=== PATIENT | female | born 1995 | race African-American/Black ===

== ENCOUNTER 2017-04-23 08:03 | Inpatient (IN) ==
[2017-04-23] MEDS ORDERED: HYDROmorphone 2 MG/1 ML VIAL IV STA ×3 (08:26→12:20)
[2017-04-23] MEDS ORDERED: SODIUM CHLORIDE 0.9% 1,000 ML IV STA (08:26)
[2017-04-23] MEDS ORDERED: ONDANSETRON 4 MG/2 ML VIAL IV STA (08:26)
[2017-04-23] MEDS ORDERED: ONDANSETRON 4 MG/2 ML VIAL ONE (08:54)
[2017-04-23] MEDS ORDERED: HYDROmorphone 2 MG/1 ML VIAL ONE ×3 (08:55→12:21)
[2017-04-23 08:58] LABS: Basophils % 0.5 % (0.0-0.8); Eosinophils # 0.1 10*3/uL (0.0-0.87); Eosinophils % 0.7 % (0.00-10.9); Hematocrit 27.1 VOL% (35.7-47.0); Hemoglobin 9.8 GM/DL (12.0-16.0); Immature Granulocytes % 5.5 %; Immature Granulocytes Absolute 0.48 #; Lymphocytes # 4.3 10*3/uL (1.4-4.0); Lymphocytes % 48.5 % (21.3-54.2); Mean Corpuscular HGB Conc 36.2 GM/DL (32-36); Mean Corpuscular Hemoglobin 35 PG (27-34); Mean Corpuscular Volume 97.1 FL (87-102); Mean Platelet Volume 9.6 FL (9.6-12.0); Monocytes # 0.6 10*3/uL (0.11-0.8); Monocytes % 6.7 % (1.7-12.7); NRBC # 0.05 10*3/uL; Neutrophils # 3.4 10*3/uL (1.4-7.4); Neutrophils % 38.1 % (38.7-73.9); Platelet Count 326 T/CUMM (130-400); Red Blood Count 2.79 MC/CUMM (3.8-5.5); Red Cell Distribution Width 18.3 % (9.3-17.3); White Blood Count 8.8 T/CUMM (4-12)
[2017-04-23 09:20] LABS: Band Neutrophils 2 % (0-10); Lymphocytes 53 % (20-55); Segmented Neutrophils 39 % (50-85); Total Cells Counted 100
[2017-04-23 09:21] LABS: Elliptocytes Few; Giant Platelets Few; Hypochromasia 1+; Macrocytosis Slight; Platelet Estimate Adequate; Polychromasia Slight
[2017-04-23 09:22] LABS: Sickle Cells Slight
[2017-04-23 09:34] LABS: Albumin 3.8 G/DL (3.4-5.0); Bilirubin,Total 2.6 MG/DL (0.2-1.0); Calcium 9.1 MG/DL (8.5-10.1); Osmolality,Calculated 274.5 MOS/KG (273-304); Potassium 3.7 MMOL/L (3.5-5.1); Total Protein 7.8 G/DL (6.4-8.3)
[2017-04-23 10:00] LABS: Barbiturates Screen,Urine Negative (Negative); Benzodiazepines Screen,Urine Negative (Negative); Cannabinoid Screen,Urine Positive (Negative); Opiate Screen,Urine Negative (Negative); Phencyclidine Screen,Urine Negative (Negative)
[2017-04-23] MEDS ORDERED: HYDROmorphone 2 MG/1 ML VIAL IV PRN (12:23)
[2017-04-23] MEDS: ONDANSETRON 4 MG/2 ML VIAL IV PRN (14:54)
[2017-04-23] MEDS: IBUPROFEN 800 MG TABLET PO SCH ×2 (14:56→20:27)
[2017-04-23] MEDS: ENOXAPARIN 40 MG/0.4 ML SYRINGE SUBCUT SCH (14:57)
[2017-04-23] MEDS: SODIUM CHLORIDE 0.9% 1,000 ML IV SCH (14:59)
[2017-04-23] MEDS ORDERED: HYDROmorphone 2 MG/1 ML VIAL IV ONE (15:00)
[2017-04-23] MEDS: diphenhydrAMINE 50 MG/1 ML VIAL IV SCH ×2 (18:00→23:54)
[2017-04-23] MEDS: HYDROmorphone 2 MG/1 ML VIAL IV PRN ×2 (18:00→21:59)
[2017-04-23] MEDS: PANTOPRAZOLE 40 MG TABLET PO SCH (18:01)
[2017-04-23] MEDS: SERTRALINE 25 MG TABLET PO SCH (20:27)
[2017-04-23] MEDS: FOLIC ACID 1 MG TABLET PO SCH (20:27)
[2017-04-24] MEDS: HYDROmorphone 2 MG/1 ML VIAL IV PRN ×2 (01:28→05:35)
[2017-04-24] MEDS: SODIUM CHLORIDE 0.9% 1,000 ML IV SCH ×3 (01:31→17:29)
[2017-04-24 06:24] LABS: Basophils % 0.4 % (0.0-0.8); Hematocrit 23.6 VOL% (35.7-47.0); Hemoglobin 8.5 GM/DL (12.0-16.0); Immature Granulocytes % 5.1 %; Immature Granulocytes Absolute 0.41 #; Lymphocytes # 1.5 10*3/uL (1.4-4.0); Lymphocytes % 18.1 % (21.3-54.2); Mean Corpuscular Hemoglobin 35 PG (27-34); Mean Corpuscular Volume 97.9 FL (87-102); Mean Platelet Volume 9.8 FL (9.6-12.0); Monocytes # 0.6 10*3/uL (0.11-0.8); Monocytes % 7.4 % (1.7-12.7); NRBC # 0.55 10*3/uL; Neutrophils # 5.5 10*3/uL (1.4-7.4); Platelet Count 241 T/CUMM (130-400); Red Blood Count 2.41 MC/CUMM (3.8-5.5)
[2017-04-24 06:50] LABS: Band Neutrophils 1 % (0-10); Hypochromasia 1+; Lymphocytes 15 % (20-55); Macrocytosis 1+; Myelocytes 2 %; Nucleated Red Blood Cells 8 (0-5); Polychromasia Slight; Segmented Neutrophils 76 % (50-85); Sickle Cells 1+; Total Cells Counted 100
[2017-04-24 06:51] LABS: Platelet Estimate Adequate
[2017-04-24] MEDS: diphenhydrAMINE 50 MG/1 ML VIAL IV SCH ×3 (06:51→17:32)
[2017-04-24 07:13] LABS: Albumin 3.5 G/DL (3.4-5.0); Bilirubin,Total 2.1 MG/DL (0.2-1.0); Calcium 8.1 MG/DL (8.5-10.1); Total Protein 6.5 G/DL (6.4-8.3)
[2017-04-24 07:14] LABS: Osmolality,Calculated 269.8 MOS/KG (273-304); Potassium 4.1 MMOL/L (3.5-5.1)
[2017-04-24 07:21] LABS: Hemoglobin A2 (Alkaline) 1.8 % (1.5-3.5); Hemoglobin F (Alkaline) 14.2 %
[2017-04-24] MEDS ORDERED: NALOXONE 0.4 MG/ML VIAL IV PRN (08:52)
[2017-04-24] MEDS: HYDROmorphone PCA 30 MG/30 ML SYRINGE IV SCH ×2 (09:22→16:37)
[2017-04-24] MEDS: HYDROXYUREA 500 MG CAPSULE PO SCH (09:24)
[2017-04-24] MEDS: IBUPROFEN 800 MG TABLET PO SCH ×3 (09:25→21:14)
[2017-04-24] MEDS: PANTOPRAZOLE 40 MG TABLET PO SCH (10:20)
[2017-04-24] MEDS: ENOXAPARIN 40 MG/0.4 ML SYRINGE SUBCUT SCH (12:44)
[2017-04-24] MEDS: SERTRALINE 25 MG TABLET PO SCH (21:14)
[2017-04-24] MEDS: FOLIC ACID 1 MG TABLET PO SCH (21:15)
[2017-04-25] MEDS: SODIUM CHLORIDE 0.9% 1,000 ML IV SCH ×2 (01:04→09:14)
[2017-04-25] MEDS: diphenhydrAMINE 50 MG/1 ML VIAL IV SCH ×2 (01:04→06:29)
[2017-04-25 03:29] LABS: Basophils % 0.1 % (0.0-0.8); Eosinophils % 0.4 % (0.00-10.9); Hematocrit 22.6 VOL% (35.7-47.0); Hemoglobin 8.2 GM/DL (12.0-16.0); Immature Granulocytes % 1.4 %; Immature Granulocytes Absolute 0.12 #; Lymphocytes # 1.9 10*3/uL (1.4-4.0); Lymphocytes % 22.5 % (21.3-54.2); Mean Corpuscular HGB Conc 36.3 GM/DL (32-36); Mean Corpuscular Hemoglobin 35 PG (27-34); Mean Corpuscular Volume 97.4 FL (87-102); Monocytes # 0.2 10*3/uL (0.11-0.8); Monocytes % 2.8 % (1.7-12.7); NRBC # 0.74 10*3/uL; Neutrophils # 6.1 10*3/uL (1.4-7.4); Neutrophils % 72.8 % (38.7-73.9); Platelet Count 190 T/CUMM (130-400); Red Blood Count 2.32 MC/CUMM (3.8-5.5); Red Cell Distribution Width 18.4 % (9.3-17.3); White Blood Count 8.3 T/CUMM (4-12)
[2017-04-25 04:06] LABS: Bilirubin,Total 1.8 MG/DL (0.2-1.0); Calcium 7.9 MG/DL (8.5-10.1); Magnesium 1.9 MG/DL (1.8-2.4); Osmolality,Calculated 272.5 MOS/KG (273-304); Phosphorous 3.3 MG/DL (2.5-4.9); Potassium 3.7 MMOL/L (3.5-5.1); Total Protein 5.9 G/DL (6.4-8.3)
[2017-04-25 04:25] LABS: Anisocytosis 1+; Band Neutrophils 7 % (0-10); Elliptocytes 1+; Eosinophils 1 % (0-10); Hypochromasia 2+; Lymphocytes 24 % (20-55); Macrocytosis 2+; Metamyelocytes 6 %; Myelocytes 2 %; Nucleated Red Blood Cells 8 (0-5); Ovalocytes Few; Platelet Estimate Normal; Segmented Neutrophils 56 % (50-85); Target Cells 2+; Total Cells Counted 100
[2017-04-25 08:06] VITALS: BP 121/74
[2017-04-25] MEDS: ONDANSETRON 4 MG/2 ML VIAL IV PRN (09:20)
[2017-04-25] MEDS: PANTOPRAZOLE 40 MG TABLET PO SCH (10:01)
[2017-04-25] MEDS: HYDROXYUREA 500 MG CAPSULE PO SCH (10:01)
[2017-04-25] MEDS: IBUPROFEN 800 MG TABLET PO SCH (10:01)
== END 2017-04-25 11:25 | disposition home or self-care (01) | DRG 662 ==
LOC: N.ED 08:03 → N.EDINP 11:41 → N.4E 12:43
PROVIDERS: ADMIT Hospitalist; ATTEND Hospitalist